=== PATIENT | female | born 1940 | race Caucasian/White ===

== ENCOUNTER → 2019-04-02 09:10 | Outpatient (BNVA) | payer MEDICARE, OTHER, SELFPAY | PROVIDERS: Visit Provider Nurse Practitioner Psychiatric/Mental Health | DX: F41.1 Generalized anxiety disorder (principal) | CPT/HCPCS: 99213 ==

== ENCOUNTER → 2019-07-02 07:59 | Outpatient (BNVA) | payer MEDICARE, SELFPAY | PROVIDERS: Family Provider Nurse Practitioner Family; Visit Provider Nurse Practitioner Psychiatric/Mental Health | DX: F41.1 Generalized anxiety disorder (principal) | CPT/HCPCS: 99212 ==

== ENCOUNTER → 2019-09-22 09:35 | Outpatient (BNVA) | payer MEDICARE, SELFPAY | PROVIDERS: Family Provider Nurse Practitioner Family; Visit Provider Nurse Practitioner Family | DX: I10 Essential (primary) hypertension (principal); E55.9 Vitamin D deficiency, unspecified; Z79.899 Other long term (current) drug therapy; Z13.6 Encounter for screening for cardiovascular disorders; H60.90 Unspecified otitis externa, unspecified ear; J30.89 Other allergic rhinitis; K21.9 Gastro-esophageal reflux disease without esophagitis; L23.9 Allergic contact dermatitis, unspecified cause | CPT/HCPCS: 80053; 80061; 81001; 82306; 83036; 84443; 85025 ==

== ENCOUNTER → 2020-03-01 08:22 | Outpatient (BNVA) | payer MEDICARE, SELFPAY | PROVIDERS: Family Provider Nurse Practitioner Family; Visit Provider Nurse Practitioner Family | DX: B96.81 Helicobacter pylori [H. pylori] as the cause of diseases classified elsewhere (principal); K29.70 Gastritis, unspecified, without bleeding | CPT/HCPCS: 86677 ==

== ENCOUNTER → 2020-06-23 09:59 | Outpatient (BNVA) | payer MEDICARE, SELFPAY | PROVIDERS: Family Provider Nurse Practitioner Family; PCP Nurse Practitioner Family; Visit Provider Nurse Practitioner Family | DX: R10.9 Unspecified abdominal pain (principal); R11.10 Vomiting, unspecified; R53.83 Other fatigue; R25.2 Cramp and spasm; R11.2 Nausea with vomiting, unspecified | CPT/HCPCS: 80053; 81000; 85025; 87400 ==

== ENCOUNTER 2020-06-23 20:36 | Inpatient (IN) | payer MEDICARE, SELFPAY ==
[2020-06-23 21:26] VITALS: BP 152/67; PULSE 62; RESP 18; TEMP 37.1; O2SAT 97; BMI 26.2
[2020-06-23 21:30] LABS: Add Urine Microscopic? YES; Bilirubin Urine Neg (Negative); Blood Urine 2+ (Negative); Glucose Urine UA Norm (Normal); Ketones Urine 3+ (Negative); Leukocyte Esterase Urine Negative (Negative); Nitrate Urine Negative (Negative); Protein Urine Trace (Negative); Specific Gravity, Urine 1.025 (1.005-1.030); Urine Appearance Cloudy (CLEAR); Urine Color Yellow (Yellow); Urobilinogen Urine 1 mg/dL (Negative); pH Urine 5 (5-7)
[2020-06-23 21:34] LABS: Add Urine Culture? Yes; Bacteria Urine TRACE /hpf; Mucus Urine 4+ /hpf; RBC Urine 0-4 /hpf (0-2); Squamous Epithelial Cell Urine 0-4 /hpf (0-5); WBC Urine 25-40 /hpf (0-5)
[2020-06-23 21:59] VITALS: BP 174/86; PULSE 64; RESP 18; O2SAT 97
[2020-06-23 22:02] LABS: Basophils % 0.3 %; Eosinophils % 0.3 %; Hematocrit 38.5 % (37.0-47.0); Hemoglobin 13.6 g/dL (11.5-15.3); Lymphocytes # 0.6 10^3/uL (0.8-4.8); Lymphocytes % 9.5 %; Mean Corpuscular HGB Conc 35.3 g/dL (30.0-36.0); Mean Corpuscular Hemoglobin 29.8 pg (28.0-34.0); Mean Corpuscular Volume 84.4 fL (81-99); Mean Platelet Volume 9.8 fL (7.4-10.4); Monocytes # 0.6 10^3/uL (0.2-0.9); Monocytes % 9.5 %; Neutrophils # 4.82 10^3/uL (1.8-7.7); Neutrophils % 79.9 %; Nucleated Red Blood Cells % 0 %; Platelet Count 194 10^3/cmm (130-400); Red Blood Count 4.56 10^6/uL (4.1-5.3); Red Cell Distribution Width 12.4 % (12.1-15.1)
--- NOTE | 2020-06-23 22:08 | W.ED.GENADLT ---
HPI - General Adult General: Chief complaint: General Medical Stated complaint: POSSIBLE LOW SODIUM Time Seen by Provider: 06/23/20 21:43 History of Present Illness: HPI narrative: 80-year-old female sent by her PCP via POV for low sodium level. She started having nausea and vomiting and generalized weakness yesterday. Sodium was 116 on lab draw this morning. No abdominal pain. No diarrhea. No sick contacts. No cough or congestion. No swelling. No dysuria. She has had decreased urination. No recent medication changes. Mild headache and dizziness. Associated symptoms: Reports headache(s), malaise, nausea and vomiting; Deny chest pain, dyspnea, rash or palpitations Review of Systems General: Reports: 10 or more systems reviewed and unremarkable except in HPI and below Const: Reports: body aches, change in appetite, fatigue and malaise Eyes: Denies: change in vision, blurry vision or eye discomfort ENMT: Denies: odynophagia, hoarseness or oral sores Card: Reports: lightheadedness and pre-syncope; Denies: chest pain, palpitations, irregular heart rhythm or edema Resp: Denies: dyspnea, productive cough, non-productive cough or wheezing GI: Reports: nausea and vomiting; Denies: diarrhea : Reports: oliguria; Denies: difficulty voiding, dysuria or urinary frequency Musc: Reports: muscle cramps and muscle weakness; Denies: joint redness, joint warmth or joint stiffness Skin/Breast: Denies: rash, pruritus or erythema Neuro: Reports: headache(s), weakness in extremities and dizziness Endo: Denies: polyuria, polydipsia, tired all the time or cold intolerance Adeel/Lymph: Denies: easy bruising or easy bleeding PFSH ED PFSH: Medical History Contact dermatitis, allergic Environmental and seasonal allergies Essential hypertension Generalized anxiety disorder See comments below. GERD without esophagitis Hypertension screen Medication management Otitis externa Vitamin D deficiency Surgical History Status post appendectomy Status post cataract extraction Status post hysterectomy Status post knee surgery Family History Father Heart disease Mother Cancer Social History Smoking and tobacco status: never smoked Alcohol intake: never Female Reproductive History: Para: 2 Physical Exam Const: COMMON NORMALS: no acute distress EXAM LIMITATIONS: no altered mental status GENERAL APPEARANCE: cooperative, well kempt and frail appearing; not in distress, not lethargic and not ill appearing NUTRITIONAL APPEARANCE: thin ORIENTATION/CONSCIOUSNESS: not lethargic HENMT: COMMON NORMALS: normocephalic HEAD & SCALP: normal to inspection and normocephalic Eye: COMMON NORMALS: Equal, round and reactive pupils present, EOMs intact bilaterally and conjunctivae normal CONJUNCTIVA: Yes conjunctivae normal PUPIL: Yes Equal, round and reactive pupils present Lymph: LYMPHATIC: no lymphadenopathy noted Resp: COMMON NORMALS: normal respiratory effort, No retractions and No use of accessory muscles Cardio: COMMON NORMALS: regular rate and regular rhythm RATE: regular rate RHYTHM: regular rhythm GI: COMMON NORMALS: Soft to palpation; negative for No hepatosplenomegaly present AUSCULTATION: Yes normoactive bowel sounds PALPATION: Yes Soft to palpation, No Tenderness to palpation present (GI), No Guarding due to palpation present (GI), No Rigid due to palpation, No No hepatosplenomegaly present, No Hepatosplenomegaly present, No Palpable mass present and No Pulsatile mass present Extremity: COMMON NORMALS: normal to inspection, full ROM and no pedal edema Neuro: SENSORIUM/ORIENTATION: No lethargic Psych: APPEARANCE: Yes well kempt Skin: COMMON NORMALS: no rashes or lesions noted and no wounds GENERAL SKIN EXAM: no rashes or lesions noted Course Vital Signs: Vital signs: Vital Signs Temperature 98.7 F 06/24/20 04:00 Pulse Rate 75 06/24/20 04:00 Respiratory Rate 18 06/24/20 04:00 Blood Pressure 133/75 06/24/20 04:00 Pulse Oximetry 94 06/24/20 04:00 MDM - General Adult MDM Narrative: Medical decision making narrative: 80-year-old female with hyponatremia, sodium of 115. Hypoosmolar, hypovolemic Given a initial hypertonic saline bolus of 150 ml over 30 minutes. Reviewed medication list; no obvious contributors. Chest x-ray does not show any mass. Urine is appropriately concentrated, no acute UTI. Urine sodium pending. Discussed the case with Dr. Horton, patient will be admitted to [facility] for further eval and treatment. Lab Data: Labs: Lab Results 06/23/20 06/23/20 06/23/20 Range/Units 05:15 21:22 21:50 WBC 6.0 (4.0-10.0) 10^3/ uL RBC 4.56 (4.1-5.3) 10^6/u L Hgb 13.6 (11.5-15.3) g/dL Hct 38.5 (37.0-47.0) % MCV 84.4 (81-99) fL MCH 29.8 (28.0-34.0) pg MCHC 35.3 (30.0-36.0) g/dL RDW 12.4 (12.1-15.1) % Plt Count 194 (130-400) 10^3/c mm MPV 9.8 (7.4-10.4) fL Neut % (Auto) 79.9 % Lymph % (Auto) 9.5 % [place] % (Auto) 9.5 % Eos % (Auto) 0.3 % Baso % (Auto) 0.3 % Neut # (Auto) 4.82 (1.8-7.7) 10^3/u L Lymph # (Auto) 0.6 L (0.8-4.8) 10^3/u L [place] # (Auto) 0.6 (0.2-0.9) 10^3/u L Eos # (Auto) 0.0 (0.0-0.8) 10^3/u L Baso # (Auto) 0.0 (0.0-0.1) 10^3/u L Nucleated RBC % (a uto) 0 % Nucleated RBCs # 0.0 /100WBC Sodium (136-145) mmol/L Potassium (3.5-5.1) mmol/L Chloride (98-107) mmol/L Carbon Dioxide (22-29) mmol/L Anion Gap (5-19) BUN (8-23) mg/dL Creatinine (0.5-0.9) mg/dL GFR Calculation Glucose (65-115) mg/dL Calculated Osmolal ity (285-295) mOsm/k g Lactate (0.5-2.2) mmol/L Uric Acid (2.4-5.7) mg/dL Calcium (8.5-10.5) mg/dL Total Bilirubin (0.15-1.2) mg/dL AST (0-32) U/L ALT (0-33) U/L Alkaline Phosphata se (35-105) IU/L Total Protein (6.6-8.7) g/dL Albumin (3.5-5.2) g/dL Globulin (1.3-4.6) g/dL TSH (0.27-4.20) uIU/ mL Urine Color Yellow (Yellow) Urine Appearance Cloudy (CLEAR) Urine pH 5 (5-7) Ur Specific Gravit y 1.025 (1.005-1.030) Urine Protein Trace (Negative) Urine Glucose (UA) Norm (Normal) Urine Ketones 3+ H (Negative) Urine Blood 2+ H (Negative) Urine Nitrate Negative (Negative) Urine Bilirubin Neg (Negative) Urine Urobilinogen 1 H (Negative) mg/dL Ur Leukocyte Gerladine ase Negative (Negative) Urine RBC 0-4 H (0-2) /hpf Urine WBC 25-40 H (0-5) /hpf Ur Squamous Epith Cells 0-4 H (0-5) /hpf Amorphous Sediment Not Reportable Urine Bacteria Trace (NONE) /hpf Urine Mucus 4+ /hpf Ur Random Sodium 63 mmol/L 06/23/20 06/23/20 06/23/20 Range/Units 21:50 21:50 21:50 WBC (4.0-10.0) 10^3/ uL RBC (4.1-5.3) 10^6/u L Hgb (11.5-15.3) g/dL Hct (37.0-47.0) % MCV (81-99) fL MCH (28.0-34.0) pg MCHC (30.0-36.0) g/dL RDW (12.1-15.1) % Plt Count (130-400) 10^3/c mm MPV (7.4-10.4) fL Neut % (Auto) % Lymph % (Auto) % [place] % (Auto) % Eos % (Auto) % Baso % (Auto) % Neut # (Auto) (1.8-7.7) 10^3/u L Lymph # (Auto) (0.8-4.8) 10^3/u L [place] # (Auto) (0.2-0.9) 10^3/u L Eos # (Auto) (0.0-0.8) 10^3/u L Baso # (Auto) (0.0-0.1) 10^3/u L Nucleated RBC % (a uto) % Nucleated RBCs # /100WBC Sodium 115 L* (136-145) mmol/L Potassium 3.8 (3.5-5.1) mmol/L Chloride 78 L (98-107) mmol/L Carbon Dioxide 23 (22-29) mmol/L Anion Gap 17.8 (5-19) BUN 11 (8-23) mg/dL Creatinine 0.5 (0.5-0.9) mg/dL GFR Calculation Not Reportable Glucose 103 (65-115) mg/dL Calculated Osmolal ity 240 L (285-295) mOsm/k g Lactate 1.3 (0.5-2.2) mmol/L Uric Acid (2.4-5.7) mg/dL Calcium 8.6 (8.5-10.5) mg/dL Total Bilirubin 0.9 (0.15-1.2) mg/dL AST 29 (0-32) U/L ALT 21 (0-33) U/L Alkaline Phosphata se 72 (35-105) IU/L Total Protein 6.8 (6.6-8.7) g/dL Albumin 4.3 (3.5-5.2) g/dL Globulin 2.5 (1.3-4.6) g/dL TSH 1.24 (0.27-4.20) uIU/ mL Urine Color (Yellow) Urine Appearance (CLEAR) Urine pH (5-7) Ur Specific Gravit y (1.005-1.030) Urine Protein (Negative) Urine Glucose (UA) (Normal) Urine Ketones (Negative) Urine Blood (Negative) Urine Nitrate (Negative) Urine Bilirubin (Negative) Urine Urobilinogen (Negative) mg/dL Ur Leukocyte Geraldine ase (Negative) Urine RBC (0-2) /hpf Urine WBC (0-5) /hpf Ur Squamous Epith Cells (0-5) /hpf Amorphous Sediment Urine Bacteria (NONE) /hpf Urine Mucus /hpf Ur Random Sodium mmol/L 06/23/20 Range/Units 21:50 WBC (4.0-10.0) 10^3/ uL RBC (4.1-5.3) 10^6/u L Hgb (11.5-15.3) g/dL Hct (37.0-47.0) % MCV (81-99) fL MCH (28.0-34.0) pg MCHC (30.0-36.0) g/dL RDW (12.1-15.1) % Plt Count (130-400) 10^3/c mm MPV (7.4-10.4) fL Neut % (Auto) % Lymph % (Auto) % [place] % (Auto) % Eos % (Auto) % Baso % (Auto) % Neut # (Auto) (1.8-7.7) 10^3/u L Lymph # (Auto) (0.8-4.8) 10^3/u L [place] # (Auto) (0.2-0.9) 10^3/u L Eos # (Auto) (0.0-0.8) 10^3/u L Baso # (Auto) (0.0-0.1) 10^3/u L Nucleated RBC % (a uto) % Nucleated RBCs # /100WBC Sodium (136-145) mmol/L Potassium (3.5-5.1) mmol/L Chloride (98-107) mmol/L Carbon Dioxide (22-29) mmol/L Anion Gap (5-19) BUN (8-23) mg/dL Creatinine (0.5-0.9) mg/dL GFR Calculation Glucose (65-115) mg/dL Calculated Osmolal ity (285-295) mOsm/k g Lactate (0.5-2.2) mmol/L Uric Acid 2.7 (2.4-5.7) mg/dL Calcium (8.5-10.5) mg/dL Total Bilirubin (0.15-1.2) mg/dL AST (0-32) U/L ALT (0-33) U/L Alkaline Phosphata se (35-105) IU/L Total Protein (6.6-8.7) g/dL Albumin (3.5-5.2) g/dL Globulin (1.3-4.6) g/dL TSH (0.27-4.20) uIU/ mL Urine Color (Yellow) Urine Appearance (CLEAR) Urine pH (5-7) Ur Specific Gravit y (1.005-1.030) Urine Protein (Negative) Urine Glucose (UA) (Normal) Urine Ketones (Negative) Urine Blood (Negative) Urine Nitrate (Negative) Urine Bilirubin (Negative) Urine Urobilinogen (Negative) mg/dL Ur Leukocyte Geraldine ase (Negative) Urine RBC (0-2) /hpf Urine WBC (0-5) /hpf Ur Squamous Epith Cells (0-5) /hpf Amorphous Sediment Urine Bacteria (NONE) /hpf Urine Mucus /hpf Ur Random Sodium mmol/L Discharge Plan Discharge Patient Disposition: Admitted As Inpatient Admit Provider: Ritu Barillas Clinical Impression: Acute hyponatremia Condition: Stable Coding Level of Care Code ED House Detective for Chg Fwd Exam Comprehensive
[2020-06-23 22:17] LABS: Alanine Aminotransferase 21 U/L (0-33); Albumin Level 4.3 g/dL (3.5-5.2); Alkaline Phosphatase 72 IU/L (35-105); Aspartate Amino Transferase 29 U/L (0-32); Blood Urea Nitrogen 11 mg/dL (8-23); Calcium 8.6 mg/dL (8.5-10.5); Carbon Dioxide 23 mmol/L (22-29); Chloride 78 mmol/L (98-107); Globulin 2.5 g/dL (1.3-4.6); Glucose 103 mg/dL (65-115); Osmolality Calculated 240 mOsm/kg (285-295); Total Bilirubin 0.9 mg/dL (0.15-1.2); Total Protein 6.8 g/dL (6.6-8.7)
[2020-06-23 22:18] LABS: Lactate (Lactic Acid level) 1.3 mmol/L (0.5-2.2)
[2020-06-23 22:20] LABS: Anion Gap 17.8 (5-19); Potassium 3.8 mmol/L (3.5-5.1); Sodium 115 mmol/L (136-145)
--- NOTE | 2020-06-23 22:51 | XRR_ITS ---
PROCEDURE INFORMATION: Exam: XR Chest Exam date and time: 06/23/2020 10:56 PM Age: 80 years old Clinical indication: Other: Hyponatremia; Patient HX: General weakness and hypnatremia TECHNIQUE: Imaging protocol: XR of the chest. Views: 1 view. Total images: 1 COMPARISON: CT chest w con* [id number] 09/17/2018 11:38 AM FINDINGS: Lungs: No visible active interstitial or alveolar airspace disease. Calcified granulomas of antecedent disease. Pleural spaces: Unremarkable. No pleural effusion. No pneumothorax. Heart/Mediastinum: Cardiac structures and configuration with arteriosclerosis. Bones/joints: Unremarkable. XR/XR chest 1V portable [id number] IMPRESSION: Nonacute.
[2020-06-23 23:07] VITALS: BP 164/84; PULSE 83; RESP 16; O2SAT 96
[2020-06-23 23:16] LABS: Thyroid Stimulating Hormone 1.24 uIU/mL (0.27-4.20)
--- NOTE | 2020-06-23 23:21 | PM.HP ---
Providers/Chief Complaint Primary Care Provider: BEBO Arias Chief Complaint: POSSIBLE LOW SODIUM History of Present Illness Destiny Duong is a 80 year old female who presented today with chief complaint of recurrent nausea and vomiting. Patient is stating that her symptoms started on Saturday, she has not noticed any fever or diarrhea, but her symptoms started after having lunch at [employer]. In total she has had more than 30 episodes of emesis at home, she is not experiencing any abdominal pain, dysuria or diarrhea. She has not noticed any fever or stool in blood. She is complaining of headache and weakness, every time she tries to have any kind of fluid especially Gatorade she would experience vomiting. Diagnostics in the ER revealed normal CBC, BMP revealed hyponatremia hypokalemia urine looks concentrated with higher specific gravity ketones positive, clinically looks mildly dehydrated received 150 bolus of 3% hypertonic saline in the ER Review of Systems Const: Denies: fever(s) Eyes: Denies: change in vision ENMT: Denies: throat pain Card: Denies: chest pain Resp: Denies: dyspnea GI: Reports: nausea and vomiting; Denies: abdominal pain, diarrhea or constipation : Denies: flank pain Musc: Denies: neck pain Skin/Breast: Denies: rash Neuro: Denies: headache(s) Psych: Denies: anxiety Endo: Denies: polyuria Adeel/Lymph: Denies: easy bruising All/Imm: Denies: urticaria Medications/Allergies Home Medications Medication Instructions Recorded Confirmed Last Taken Type fluticasone propionate 50 1 spray INTRANASAL DAILY PRN 90 09/22/19 06/23/20 Unknown Rx mcg/actuation nasal Days #16 gm spray,suspension triamcinolone acetonide 0.1 % 1 applic TOPICAL DAILY PRN 30 Days 09/22/19 06/23/20 Unknown Rx topical cream #15 gm albuterol sulfate 90 mcg/actuation 2 puff INHALATION Q4H PRN 30 Days 02/16/20 06/23/20 Unknown Rx aerosol inhaler #8.5 gm atenolol 50 mg tablet 50 mg PO BID 90 Days #180 tab 04/07/20 06/23/20 Unknown Rx pantoprazole 40 mg tablet,delayed 40 mg PO Q12H 90 Days #180 tab 04/07/20 06/23/20 Unknown Rx release paroxetine HCl 20 mg tablet 20 mg PO DAILY 90 Days #90 tab 04/07/20 06/23/20 Unknown Rx Allergies Allergy/AdvReac Type Severity Reaction Status Date / Time cefaclor [From Ceclor] Allergy hives Verified 06/23/20 09:13 ciprofloxacin [From Cipro] Allergy hives Verified 06/23/20 09:13 Sulfa (Sulfonamide Allergy hives Verified 06/23/20 09:13 Antibiotics) PFSH Acute PFSH: Medical History Contact dermatitis, allergic Environmental and seasonal allergies Essential hypertension Generalized anxiety disorder See comments below. GERD without esophagitis Hypertension screen Medication management Otitis externa Vitamin D deficiency Surgical History Status post appendectomy Status post cataract extraction Status post hysterectomy Status post knee surgery Family History Father Heart disease Mother Cancer Social History Smoking and tobacco status: never smoked Alcohol intake: never Female Reproductive History: Para: 2 Vitals/I&O/Wt Last Vital Signs Temp 98.8 F 06/23/20 21:26 Pulse 83 06/23/20 23:07 Resp 16 06/23/20 23:07 BP 164/84 06/23/20 23:07 Pulse Ox 96 06/23/20 23:07 Weight last 48 hrs Weight 64.864 kg Physical Exam Narrative: EXAM NARRATIVE: elderly female without any active distress of chest pain shortness of breath or abdominal pain Looks mildly dehydrated Hemodynamically stable S1, S2 no murmur appreciated Abdomen soft nontender bowel sounds present Lower extremity no edema gangrene ulcer Bilateral breath sounds no audible stridor or wheezing Appropriate mood and affect GCS 15 no neurological deficits Complaining of headache, pressure-like sensation, frontal area nontender on palpation Data : 06/23/20 21:50 06/23/20 21:50 A&P Assessment and plan (1) Acute hyponatremia: Clinically mildly dehydrated, recurrent nausea and vomiting, no fever, blood in stool or abdominal pain Suspect gastritis Received 150 mL bolus of 3% hypertonic saline in the ER We will check sodium every 4 hours, next sodium check at 4 AM Complaining of headache and weakness I will keep her on 30 cc/h of normal saline TSH normal, urine looks concentrated We will request urine and serum osmolarity Target sodium correction 6 to 8 mEq in 24 hours Status: Acute Additional A&P Information Regular diet Full code Anxiety/depression: Hold paroxetine GERD: Continue Protonix once daily DVT prophylaxis Lovenox Attestations Medical Necessity Statement*: Anticipating stay in the hospital cross more than 2 midnights for management of hyponatremia with symptoms Time Spent in Patient Care: (>than 50% of time spent in counselling and/or direct pt care on unit). 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
[2020-06-23] MEDS: ondansetron 2 mg/ML SDV 2 mL 4 MG IVP (23:41)
[2020-06-24] VITALS (65 sets, daily range): BP systolic 110–164; BP diastolic 59–106; PULSE 56–81; RESP 15–25; TEMP 36.4–37.1; O2SAT 93–99
[2020-06-24 00:10] LABS: Uric Acid 2.7 mg/dL (2.4-5.7)
[2020-06-24] MEDS: sodium chloride 0.9% 1,000 ML 30 ML IV (01:02)
[2020-06-24 01:52] LABS: Sodium 117 mmol/L (136-145)
[2020-06-24 05:42] LABS: Anion Gap 10.7 (5-19); Blood Urea Nitrogen 9 mg/dL (8-23); Calcium 8.1 mg/dL (8.5-10.5); Carbon Dioxide 27 mmol/L (22-29); Chloride 85 mmol/L (98-107); Glucose 86 mg/dL (65-115); Osmolality Calculated 246 mOsm/kg (285-295); Potassium 3.7 mmol/L (3.5-5.1)
[2020-06-24 05:46] LABS: Urine Random Sodium 63 mmol/L
[2020-06-24 05:52] LABS: Sodium 119 mmol/L (136-145)
[2020-06-24] MEDS: atenolol 50 mg Tablet PO ×2 (08:53→18:05)
[2020-06-24] MEDS: pantoprazole DR 40 mg Tablet PO (08:53)
[2020-06-24 09:00] LABS: Sodium 117 mmol/L (136-145)
[2020-06-24 12:34] LABS: Sodium 116 mmol/L (136-145)
--- NOTE | 2020-06-24 15:15 | P.PN_ITS ---
Subjective Subjective: Interval history: Patient was seen and examined this morning, nausea and vomiting has improved, still complaining of diarrhea 2 episodes, denies any, dizziness, headache, muscle cramps, weakness , confusion, abdominal pain, currently alert oriented x3. Tolerating diet well. Medications: Reviewed: Yes Vitals/I&O/Wt Last Vital Signs Temp 97.6 F 06/24/20 11:20 Pulse 66 06/24/20 11:20 Resp 18 06/24/20 11:20 BP 133/64 06/24/20 11:20 Pulse Ox 96 06/24/20 11:20 06/24/20 06/24/20 06/24/20 06:59 14:59 22:59 Intake Total 290 / 290 960 / 960 Balance 290 / 290 960 / 960 Weight last 48 hrs Weight 64.864 kg Physical Exam Const: COMMON NORMALS: patient oriented x3 HENMT: COMMON NORMALS: normocephalic and atraumatic HEAD & SCALP: normocephalic and atraumatic Chest: CHEST: Yes Symmetrical chest wall rise Resp: COMMON NORMALS: normal respiratory effort, No retractions, No use of a ccessory muscles and clear to auscultation bilaterally EFFORT & INSPECTION: Yes symmetric chest movement AUSCULTATION: clear to auscultation bilaterally Cardio: COMMON NORMALS: regular rate, regular rhythm, S1 normal heart sound present, S2 normal heart sound present, No gallops present (Cardio), No murmurs present (Cardio), No rub (Cardio) and Peripheral pulses 2+ throughout RATE: regular rate RHYTHM: regular rhythm HEART SOUNDS: S1 normal heart sound present and S2 normal heart sound present PERIPHERAL PULSES: Peripheral pulses 2+ throughout GI: COMMON NORMALS: Normal to inspection, nondistended, normoactive bowel sounds present, Soft to palpation, non-tender, No hepatosplenomegaly present and no masses AUSCULTATION: Yes normoactive bowel sounds PALPATION: Yes Soft to palpation and Yes No hepatosplenomegaly present RECTAL EXAM: deferred Extremity: COMMON NORMALS: no clubbing, cyanosis or edema and no pedal edema Neuro: COMMON NORMALS: patient oriented x3 Data : 06/23/20 21:50 06/24/20 18:25 A&P Assessment and plan (1) Acute hyponatremia: Acute euvolemic hyponatremia: Likely secondary to SIADH, 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 Rule out other causes. Urine specific gravity is high, serum osmolality is low, TSH is normal. Random cortisol: Urine osmolality: Awaited Patient has received hypertonic saline in the ER, was initially kept on 30 cc normal saline an hour. IV fluids have been discontinued. Lasix 20 IV one-time dose. Serum sodium every 4 hours. Status: Acute Additional A&P Information Acute hyponatremia; Clinically mildly dehydrated, recurrent nausea and vomiting, no fever, blood in stool or abdominal pain Suspect gastritis Received 150 mL bolus of 3% hypertonic saline in the ER We will check sodium every 4 hours, next sodium check at 4 AM Complaining of headache and weakness I will keep her on 30 cc/h of normal saline TSH normal, urine looks concentrated We will request urine and serum osmolarity Target sodium correction 6 to 8 mEq in 24 hours Regular diet Full code Anxiety/depression: Hold paroxetine GERD: Continue Protonix once daily DVT prophylaxis Lovenox Attestations Medical Necessity Statement*: Patient needs to be in hospital for management of acute hyponatremia. 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
[2020-06-24] MEDS: sodium chloride 1 gm Tablet 2 GM PO (15:43)
[2020-06-24 17:32] LABS: Sodium 114 mmol/L (136-145)
[2020-06-24] MEDS: FUROsemide 10 mg/mL SDV 2mL 20 MG IVP (18:05)
[2020-06-24 19:10] LABS: Sodium 115 mmol/L (136-145)
[2020-06-24 20:36] LABS: Sodium 114 mmol/L (136-145)
[2020-06-25] VITALS (281 sets, daily range): BP systolic 112–180; BP diastolic 48–128; PULSE 51–79; RESP 9–29; TEMP 36.4–37.5; O2SAT 93–99
[2020-06-25 03:02] LABS: Sodium 120 mmol/L (136-145)
--- NOTE | 2020-06-25 06:37 | PC.NURSE ---
SHIFT SUMMARY Patient arrived on unit at 0725 form [facility] floor by wheelchair. Patient was able to transfer from wheelchair to bed with nurse assistance but did not use any other assist devices. No reports of confusion or pain from patient all evening. Patient had an uneventful night and was asleep most of the night.
[2020-06-25] MEDS: atenolol 50 mg Tablet PO ×2 (08:14→17:15)
[2020-06-25] MEDS: pantoprazole DR 40 mg Tablet PO (08:14)
[2020-06-25 10:09] LABS: Sodium 122 mmol/L (136-145)
--- NOTE | 2020-06-25 11:25 | P.CONIM_ITS ---
Providers/Reason For Consult Consulting Physican/Specialty*: Eval for hyponatremia Reason for Consult*: Eval for hypoNa Attending Physician: Ritu Barillas MD Primary Care Provider: BEBO Arias History of Present Illness History of Present Illness Thank you for consultation, today I had the pleasure of reviewing this 80 year old lady. Roughly last Saturday after eating at [employer], she felt unwell, developed nausea and vomiting and diarrhea. She was able to maintain some oral intake of water, roughly 60 ounces of water a day but she has not been eating or drinking very well. Symptoms persisted and eventually she arrived in our emergency room for evaluation. On arrival she was found on initial blood chemistry to have a serum sodium of 116. This is in [place] contrast to a sodium of 139 seen back in August of last year. Following hospitalization she did receive 3% IV hypertonic saline, initially the sodium level marginally improved to 119, however subsequently drifted down. After this IV fluid has been stopped and her sodium levels actually improving now by itself, on free water restriction and a more robust diet. Today at 9:00 this morning her sodium is now 122. Urinalysis demonstrated specific gravity 1.025 urine sodium 63 and urine osmolality sent and pending. TSH is normal at 1.24 No history of hyponatremia. Typically she has a robust diet, she does not over hydrate. No history of thyroid disease, lung disease, heart disease, kidney disease, nephrotic syndrome. No extremity edema, shortness of breath or other hypervolemic symptoms. No recent exposure to thiazide diuretics opioids, steroids, new antiseizure medications. She has been on paroxetine now for roughly 1 year. Hemodynamically she has been robust since hospitalization. Review of Systems Narrative: ROS - 12 point review of systems completed per HPI and subjective assessment, this includes Constitutional: No weakness, fatigue Respiratory: No SOB on exertion, comfortable at rest CardioVasc: No chest pain, palpitations Gastrointestinal: Nausea, no vomiting Neurological: No seizures, no AMS Derm: No new rashes, lesions or wounds Immunological: No seasonal and no food allergies Meds/Allergies Home Medications and Allergies Home Medications Medication Instructions Recorded Confirmed Last Taken Type fluticasone propionate 50 1 spray INTRANASAL DAILY PRN 90 09/22/19 06/24/20 Unknown Rx mcg/actuation nasal Days #16 gm spray,suspension triamcinolone acetonide 0.1 % 1 applic TOPICAL DAILY PRN 30 Days 09/22/19 06/24/20 Unknown Rx topical cream #15 gm albuterol sulfate 90 mcg/actuation 2 puff INHALATION Q4H PRN 30 Days 02/16/20 06/24/20 Unknown Rx aerosol inhaler #8.5 gm atenolol 50 mg tablet 50 mg PO BID 90 Days #180 tab 04/07/20 06/24/20 Unknown Rx pantoprazole 40 mg tablet,delayed 40 mg PO Q12H 90 Days #180 tab 04/07/20 06/24/20 Unknown Rx release paroxetine HCl 20 mg tablet 20 mg PO DAILY 90 Days #90 tab 04/07/20 06/24/20 Unknown Rx Allergies Allergy/AdvReac Type Severity Reaction Status Date / Time cefaclor [From Ceclor] Allergy hives Verified 06/23/20 09:13 ciprofloxacin [From Cipro] Allergy hives Verified 06/23/20 09:13 Sulfa (Sulfonamide Allergy hives Verified 06/23/20 09:13 Antibiotics) Current Medications Current Medications Generic Name Dose Route Start Last Admin Trade Name Freq PRN Reason Stop Dose Admin Atenolol 50 mg 06/24/20 09:00 06/25/20 08:14 Atenolol 50 Mg Tablet PO 50 mg BID ODILON Administration Pantoprazole Sodium 40 mg 06/24/20 09:00 06/25/20 08:[address] 40 Mg Tablet PO 40 mg DAILY ODILON Administration PFSH Acute PFSH: Medical History Contact dermatitis, allergic Environmental and seasonal allergies Essential hypertension Generalized anxiety disorder See comments below. GERD without esophagitis Hypertension screen Medication management Otitis externa Vitamin D deficiency Surgical History Status post appendectomy Status post cataract extraction Status post hysterectomy Status post knee surgery Family History Father Heart disease Mother Cancer Social History Smoking and tobacco status: never smoked Alcohol intake: never Female Reproductive History: Para: 2 Vitals/I&O/Wt Last Vital Signs Temp 98.4 F 06/25/20 07:45 Pulse 61 06/25/20 09:10 Resp 14 06/25/20 09:10 BP 134/58 06/25/20 09:10 Pulse Ox 97 06/25/20 09:10 06/24/20 06/25/20 06/25/20 22:59 06:59 14:59 Intake Total 492 / 1452 150 / 150 Output Total 300 / 300 350 / 650 150 / 150 Balance 192 / 1152 -350 / 802 0 / 0 Weight last 48 hrs Weight 64.864 kg Physical Exam Narrative: EXAM NARRATIVE: Constitutional: Awake, comfortable HEENT: Wet mucosa, no jvp, non icteric Lungs: Bilaterally clear without discernible wheeze or rales in all lung zones CVS: S1 S2, no murmurs Abdo: Soft, BS ok Ext 4: Minimal edema, peripheral perfusion with no cyanosis Neurological: Grossly non-focal A&P Additional A&P Information 1. Euvolemic hyponatremia Consistent with initial presentation of diarrhea i.e. loss to electrolyte rich fluid which in itself will stimulate ADH to further concentrate urine, in addition to low solute and high water intake for the last few days. Her diarrhea, vomiting is subsiding and her nausea remains but is very slight. Her serum chemistry is now corrected by itself on free water restriction and a robust diet. No other changes to medical management at this time, will continue to monitor her sodium levels very closely. Although she did down to 114 last night, she was roughly this level yesterday as well. As high as 117 yesterday morning i.e. her goal for this morning is thus 125 and for tomorrow morning will be low 130s. Given the acuity of the hyponatremia in this case her risk for demyelination is very low. 2. Hemodynamics Blood pressure is robust, no changes to antihypertensive therapy. 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
--- NOTE | 2020-06-25 12:41 | P.PN_ITS ---
Subjective Subjective: Interval history: Patient was seen and examined this morning, deny nausea , vomiting, dizziness, headache, muscle cramps, weakness , confusion, abdominal pain, currently alert oriented x3.Tolerating diet well. Serum sodium has improved. Medications: Reviewed: Yes Vitals/I&O/Wt Last Vital Signs Temp 98.4 F 06/25/20 07:45 Pulse 61 06/25/20 09:10 Resp 14 06/25/20 09:10 BP 134/58 06/25/20 09:10 Pulse Ox 97 06/25/20 09:10 06/24/20 06/25/20 06/25/20 22:59 06:59 14:59 Intake Total 492 / 1452 150 / 150 Output Total 300 / 300 350 / 650 150 / 150 Balance 192 / 1152 -350 / 802 0 / 0 Weight last 48 hrs Weight 64.864 kg Physical Exam Const: COMMON NORMALS: patient oriented x3 HENMT: COMMON NORMALS: normocephalic and atraumatic HEAD & SCALP: normocephalic and atraumatic Chest: CHEST: Yes Symmetrical chest wall rise Resp: COMMON NORMALS: normal respiratory effort, No retractions, No use of accessory muscles and clear to auscultation bilaterally EFFORT & INSPECTION: Yes symmetric chest movement AUSCULTATION: clear to auscultation bilaterally Cardio: COMMON NORMALS: regular rate, regular rhythm, S1 normal heart sound present, S2 normal heart sound present, No gallops present (Cardio), No murmurs present (Cardio), No rub (Cardio) and Peripheral pulses 2+ throughout RATE: regular rate RHYTHM: regular rhythm HEART SOUNDS: S1 normal heart sound present and S2 normal heart sound present PERIPHERAL PULSES: Peripheral pulses 2+ throughout GI: COMMON NORMALS: Normal to inspection, nondistended, normoactive bowel sounds present, Soft to palpation, non-tender, No hepatosplenomegaly present and no masses AUSCULTATION: Yes normoactive bowel sounds PALPATION: Yes Soft to palpation and Yes No hepatosplenomegaly present RECTAL EXAM: deferred Extremity: COMMON NORMALS: no clubbing, cyanosis or edema and no pedal edema Neuro: COMMON NORMALS: patient oriented x3 Data : 06/23/20 21:50 06/25/20 17:56 A&P Assessment and plan (1) Acute hyponatremia: Acute euvolemic hyponatremia: Likely secondary to SIADH, 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 Rule out other causes. Urine specific gravity is high, serum osmolality is low, TSH is normal. Random cortisol: Urine osmolality: Awaited Patient has received hypertonic saline in the ER, was initially kept on 30 cc normal saline an hour. IV fluids have been discontinued. Lasix 20 IV one-time dose. Serum sodium every 4 hours. Status: Acute Additional A&P Information Acute hyponatremia; Clinically mildly dehydrated, recurrent nausea and vomiting, no fever, blood in stool or abdominal pain Suspect gastritis Received 150 mL bolus of 3% hypertonic saline in the ER We will check sodium every 4 hours, next sodium check at 4 AM Complaining of headache and weakness I will keep her on 30 cc/h of normal saline TSH normal, urine looks concentrated We will request urine and serum osmolarity Target sodium correction 6 to 8 mEq in 24 hours Regular diet Full code Anxiety/depression: Hold paroxetine GERD: Continue Protonix once daily DVT prophylaxis Lovenox Attestations Medical Necessity Statement*: Patient needs to be in hospital for management of acute hyponatremia. Coding Level of Care Code Acute Security Police Officer for Luiz Real Diagnoses Acute hyponatremia E87.1
--- NOTE | 2020-06-25 18:47 | PC.NURSE ---
Shift Summary: Uneventful shift. Pt's sodium level continues to improve. Pt is alert and oriented. Is able to get up to the bedisde commode and has spent a lot of time in a chair today. Nurse attempted to ambulate pt, but pt reports that she is too weak to do so just yet. Pt's oral intake has been 700 mL during day shift with a 1500 mL fluid restriction. Most recent labs have shown a sodium level decrease form [address] kaur alerted and no new orders were received.
[2020-06-25 18:48] LABS: Sodium 119 mmol/L (136-145)
[2020-06-26] VITALS (161 sets, daily range): BP systolic 110–185; BP diastolic 51–113; PULSE 51–90; RESP 9–29; TEMP 36.6–37.2; O2SAT 93–99
[2020-06-26 06:38] LABS: Basophils % 0.7 %; Eosinophils # 0.1 10^3/uL (0.0-0.8); Eosinophils % 1.5 %; Hemoglobin 12.5 g/dL (11.5-15.3); Lymphocytes # 0.9 10^3/uL (0.8-4.8); Lymphocytes % 22.8 %; Mean Corpuscular HGB Conc 35.7 g/dL (30.0-36.0); Mean Corpuscular Hemoglobin 29.7 pg (28.0-34.0); Mean Corpuscular Volume 83.1 fL (81-99); Mean Platelet Volume 9.6 fL (7.4-10.4); Monocytes # 0.5 10^3/uL (0.2-0.9); Monocytes % 12.6 %; Neutrophils # 2.56 10^3/uL (1.8-7.7); Neutrophils % 62.2 %; Nucleated Red Blood Cells % 0 %; Platelet Count 190 10^3/cmm (130-400); Red Blood Count 4.21 10^6/uL (4.1-5.3); Red Cell Distribution Width 12.7 % (12.1-15.1); White Blood Count 4.1 10^3/uL (4.0-10.0)
[2020-06-26 06:56] LABS: Anion Gap 11.9 (5-19); Blood Urea Nitrogen 9 mg/dL (8-23); Calcium 7.9 mg/dL (8.5-10.5); Carbon Dioxide 28 mmol/L (22-29); Chloride 83 mmol/L (98-107); Glucose 99 mg/dL (65-115); Osmolality Calculated 247 mOsm/kg (285-295); Potassium 3.9 mmol/L (3.5-5.1)
[2020-06-26 07:36] LABS: Sodium 119 mmol/L (136-145)
[2020-06-26] MEDS: sodium chloride 1 gm Tablet 2 GM PO ×4 (07:52→20:26)
[2020-06-26] MEDS: ondansetron 2 mg/ML SDV 2 mL 4 MG IVP ×2 (08:11→16:58)
[2020-06-26] MEDS: pantoprazole DR 40 mg Tablet PO (08:11)
--- NOTE | 2020-06-26 08:20 | PC.NURSE ---
Rounded with Dr arvizu and Dr Horton this morning. Sodium levels have not increased from last night. Still at 119. New medication orders received for salt tabs (See mar). Patient appears alerted and oriented to person, place time, and situation, but if you have a lengthy conversation its noticeable that the patient does have some trouble recalling things and finding words.
--- NOTE | 2020-06-26 08:43 | CTR_ITS ---
PROCEDURE INFORMATION: Exam: CT Chest Without Contrast; Diagnostic Exam date and time: 06/26/2020 9:17 AM Age: 80 years old Clinical indication: Other: Hyponatremia TECHNIQUE: Imaging protocol: Diagnostic computed tomography of the chest without contrast. Radiation optimization: All CT scans at this facility use at least one of these dose optimization techniques: automated exposure control; mA and/or kV adjustment per patient size (includes targeted exams where dose is matched to clinical indication); or iterative reconstruction. COMPARISON: CT chest w con* [id number] 09/17/2018 11:38 AM RADIATION DOSE METRICS: Total DLP (mGy-cm): 407.58 FINDINGS: Lungs: Mild subsegmental basilar atelectasis. No pneumonia is seen. Pleural spaces: Unremarkable. No pneumothorax. No pleural effusion. Heart: Heart is not enlarged. The coronary arteries are calcified. Aorta: Calcified aorta. No aneurysm. Lymph nodes: Benign calcified mediastinal and pulmonary hilar lymph nodes. Adrenal glands: 1 cm left adrenal benign adenoma. Bones/joints: Degenerative changes in the spine with sclerosis and small osteophytes. Soft tissues: Unremarkable. CT/CT chest wo con [id number] IMPRESSION: 1. Coronary artery calcification. 2. Benign calcified granulomas disease. 3. Calcified atherosclerotic aorta. 4. No acute abnormalities are seen in the chest. COMMENTS: Consistent with the [employer]'s Incidental Findings Committee white paper (J Am Gideon Radiol 2017): Any incidental adrenal lesion less than or equal to 1 cm is likely benign. No follow-up imaging is recommended for these lesions per consensus recommendations based on imaging criteria. Further lab evaluation could be pursued if warranted based on clinical findings. Radiation Dose CTDIVOL = (mGy): DLP = 407.58 (mGy-cm)
--- NOTE | 2020-06-26 08:43 | PM.PN ---
Subjective Subjective: Interval history: No new issues today. She feels well. Breathing comfortably, no extremity edema, no confusion, no headache, no nausea or vomiting, no diarrhea. She is keen to go home. Medications: Reviewed: Yes Vitals/I&O/Wt Last Vital Signs Temp 98.6 F 06/26/20 04:25 Pulse 63 06/26/20 08:00 Resp 17 06/26/20 08:00 BP 162/76 06/26/20 08:00 Pulse Ox 95 06/26/20 08:00 06/25/20 06/26/20 06/26/20 22:59 06:59 14:59 Intake Total 550 / 700 Output Total 350 / 500 1000 / 1500 400 / 400 Balance 200 / 200 -1000 / -800 -400 / -400 Physical Exam Narrative: EXAM NARRATIVE: Constitutional: Awake, comfortable HEENT: Wet mucosa, no jvp, non icteric Lungs: Bilaterally clear without discernible wheeze or rales in all lung zones CVS: S1 S2, no murmurs Abdo: Soft, BS ok Ext 4: Minimal edema, peripheral perfusion with no cyanosis Neurological: Grossly non-focal Data : 06/26/20 06:31 06/26/20 06:31 Micro: Microbiology 06/23/20 21:22 Urine Culture - Preliminary Urine,Clean Catch Gram Negative Rods Gram Negative Rods#2 A&P Additional A&P Information 1. Euvolemic hyponatremia Sodium has drifted back down. Initially her presentation was consistent with hypovolemia from recent diarrhea, in addition to high fluid and low solute intake, however, she is behaving now like SIADH from an unclear etiology. Paroxetine has been held, will CT scan the lungs today to make sure were not missing anything there. Continue fluid restriction, encourage oral intake of food. We will add salt tablets, 2 g 3 times daily for the time being, titration over the next 24 hours depending on how sodium trends. Cont Q4 sodium levels 2. Hemodynamics Blood pressure is robust, no changes to antihypertensive therapy. 3. She will be able to go home once the sodium level is in the high 120 range. 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
--- NOTE | 2020-06-26 09:51 | PC.NURSE ---
Nurse Held 0900 beta wang. Heart rate has been in the mid 50's and blood pressure has been within normal limits.
[2020-06-26] MEDS: amlodipine 10 mg Tablet PO (11:03)
--- NOTE | 2020-06-26 11:18 | PC.NURSE ---
BP has steadily increased. Now in the 180's systolic. Heart rate is still less than 60. Nurse alerted Dr Horton and received a one time order for 10 mg amlodipine.
--- NOTE | 2020-06-26 12:36 | P.PN_ITS ---
Subjective Subjective: Interval history: Patient was seen and examined this morning, deny any active complaint.She wants to go home. No acute event overnight.Vitals and labs have been reviewed. Medications: Reviewed: Yes Vitals/I&O/Wt Last Vital Signs Temp 98.6 F 06/26/20 04:25 Pulse 58 L 06/26/20 10:45 Resp 14 06/26/20 10:45 BP 185/66 06/26/20 10:45 Pulse Ox 97 06/26/20 10:45 06/25/20 06/26/20 06/26/20 22:59 06:59 14:59 Intake Total 550 / 700 450 / 450 Output Total 350 / 500 1000 / 1500 400 / 400 Balance 200 / 200 -1000 / -800 50 / 50 Physical Exam Const: COMMON NORMALS: patient oriented x3 HENMT: COMMON NORMALS: normocephalic and atraumatic HEAD & SCALP: normocephalic and atraumatic Chest: CHEST: Yes Symmetrical chest wall rise Resp: COMMON NORMALS: normal respiratory effort, No retractions, No use of accessory muscles and clear to auscultation bilaterally EFFORT & INSPECTION: Yes symmetric chest movement AUSCULTATION: clear to auscultation bilaterally Cardio: COMMON NORMALS: regular rate, regular rhythm, S1 normal heart sound present, S2 normal heart sound present, No gallops present (Cardio), No murmurs present (Cardio), No rub (Cardio) and Peripheral pulses 2+ throughout RATE: regular rate RHYTHM: regular rhythm HEART SOUNDS: S1 normal heart sound present and S2 normal heart sound present PERIPHERAL PULSES: Peripheral pulses 2+ throughout GI: COMMON NORMALS: Normal to inspection, nondistended, normoactive bowel sounds present, Soft to palpation, non-tender, No hepatosplenomegaly present and no masses AUSCULTATION: Yes normoactive bowel sounds PALPATION: Yes Soft to palpation and Yes No hepatosplenomegaly present RECTAL EXAM: deferred Extremity: COMMON NORMALS: no clubbing, cyanosis or edema and no pedal edema Neuro: COMMON NORMALS: patient oriented x3 Data : 06/26/20 06:31 06/26/20 14:38 Micro: Microbiology 06/23/20 21:22 Urine Culture - Final Urine,Clean Catch Escherichia coli Morganella morganii A&P Assessment and plan (1) Acute hyponatremia: Acute euvolemic hyponatremia: Likely secondary to SIADH, 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 Rule out other causes. Urine specific gravity is high, serum osmolality is low, TSH is normal. Random cortisol: Urine osmolality: Awaited CT chest without contrast:No acute abnormalities are seen in the chest. X-ray chest:No visible active interstitial or alveolar airspace d isease.Calcified granulomas of antecedent disease. Pleural spaces: Unremarkable. No pleural effusion. No pneumothorax. Patient has received hypertonic saline in the ER, was initially kept on 30 cc no rmal saline an hour. IV fluids have been discontinued. Currently on 2 gm salt tablet p.o. 3 times daily Lasix 20 IV one-time dose. Serum sodium every 8 hours. Status: Acute Additional A&P Information Acute hyponatremia; Clinically mildly dehydrated, recurrent nausea and vomiting, no fever, blood in stool or abdominal pain Suspect gastritis Received 150 mL bolus of 3% hypertonic saline in the ER We will check sodium every 4 hours, next sodium check at 4 AM Complaining of headache and weakness I will keep her on 30 cc/h of normal saline TSH normal, urine looks concentrated We will request urine and serum osmolarity Target sodium correction 6 to 8 mEq in 24 hours Regular diet Full code Anxiety/depression: Hold paroxetine GERD: Continue Protonix once daily DVT prophylaxis Lovenox Attestations Medical Necessity Statement*: Patient needs to be in hospital for management of acute hyponatremia. 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
[2020-06-26 15:04] LABS: Sodium 121 mmol/L (136-145)
[2020-06-26] MEDS: atenolol 50 mg Tablet PO (17:00)
[2020-06-26 23:13] LABS: Sodium 124 mmol/L (136-145)
[2020-06-27] VITALS (58 sets, daily range): BP systolic 106–150; BP diastolic 45–70; PULSE 55–91; RESP 13–26; TEMP 36.3–36.9; O2SAT 94–98
[2020-06-27] MEDS: guaiFENesin-dextromethorphan UDC 10 mL 5 ML PO ×3 (00:42→16:22)
--- NOTE | 2020-06-27 00:45 | PC.NURSE ---
New orders; Pt c/o persistent cough that is unaffected by taking sips of water. RN contacted MD Eran addictions counselor assistant and received new orders for PRN cough suppressant.
[2020-06-27 03:52] LABS: Basophils # 0.1 10^3/uL (0.0-0.1); Eosinophils # 0.1 10^3/uL (0.0-0.8); Eosinophils % 2.1 %; Hematocrit 35.6 % (37.0-47.0); Hemoglobin 12.4 g/dL (11.5-15.3); Lymphocytes # 1.2 10^3/uL (0.8-4.8); Lymphocytes % 23.3 %; Mean Corpuscular HGB Conc 34.8 g/dL (30.0-36.0); Mean Corpuscular Hemoglobin 29.8 pg (28.0-34.0); Mean Corpuscular Volume 85.6 fL (81-99); Mean Platelet Volume 10.4 fL (7.4-10.4); Monocytes # 0.6 10^3/uL (0.2-0.9); Monocytes % 10.6 %; Neutrophils # 3.27 10^3/uL (1.8-7.7); Neutrophils % 62.8 %; Nucleated Red Blood Cells % 0 %; Platelet Count 221 10^3/cmm (130-400); Red Blood Count 4.16 10^6/uL (4.1-5.3); Red Cell Distribution Width 12.8 % (12.1-15.1); White Blood Count 5.2 10^3/uL (4.0-10.0)
[2020-06-27 04:10] LABS: Anion Gap 9.8 (5-19); Blood Urea Nitrogen 10 mg/dL (8-23); Calcium 8.2 mg/dL (8.5-10.5); Carbon Dioxide 27 mmol/L (22-29); Chloride 91 mmol/L (98-107); Glucose 94 mg/dL (65-115); Osmolality Calculated 257 mOsm/kg (285-295); Potassium 3.8 mmol/L (3.5-5.1); Sodium 124 mmol/L (136-145)
[2020-06-27 04:25] LABS: Cortisol Random 10.49 ug/dL (2.47-19.5)
[2020-06-27 07:15] LABS: Sodium 126 mmol/L (136-145)
--- NOTE | 2020-06-27 08:14 | CT_ITS ---
WS: [id number] CT ABDOMEN PELVIS TECHNIQUE: Noncontrast CT of the abdomen and pelvis with coronal and sagittal reformatted images. CLINICAL INFORMATION: nuasea, vomiting COMPARISON: None. DLP: 998.[address] scans at [facility] use at least one of these dose optimization techniques: automat ed exposure control; mA and/or kV adjustment per patient size (includes targeted exams where dose is matched to clinical indication); or iterative reconstruction. FINDINGS: Distended stomach with products and air-fluid levels. No evidence of small or large bowel obstruction . Noncontrast liver is normal. Normal GE junction. Normal noncontrast spleen. Lung bases are well aer ated. Adrenal gland is normal. Left adrenal adenoma measuring 12 mm. No hydronephrosis in either kidn ey. No obstructing renal or ureteral calculi. Noncontrast gallbladder is contracted. Tiny fat-containing umbilical hernia. Sigmoid diverticulosis. No evidence of acute diverticulitis. No evidence of small or large bowel obstruction. Moderate aortic calcification. Normal caliber abdominal aorta. No abdominal or pelvic lymphadenopathy. No inguinal l ymphadenopathy. CT/CT abdomen pelvis wo con [id number] IMPRESSION: 1. Distended stomach with air-fluid levels and food products. 2. No evidence of small or large bowel obstruction. 3. Sigmoid diverticulosis. No evidence of acute diverticulitis. 4. No free fluid in the abdomen or pelvis. 5. Incidental left adrenal adenoma. 6. No hydronephrosis in either kidney
[2020-06-27] MEDS: ondansetron 2 mg/ML SDV 2 mL 4 MG IVP (08:20)
[2020-06-27] MEDS: sodium chloride 1 gm Tablet 2 GM PO (08:28)
[2020-06-27] MEDS: amlodipine 5 mg Tablet PO (08:36)
[2020-06-27] MEDS: piperacillin-tazobactam 3.375 GM in sodium chloride 0.9% (plus) 50 ML IV (08:38)
[2020-06-27 09:03] LABS: Procalcitonin 0.03 ng/mL (0-0.5)
[2020-06-27 09:14] LABS: C Reactive Protein 1.3 mg/L (0.0-4.9)
[2020-06-27 09:26] LABS: Erythrocyte Sedimentation Rate 7 mm/hr (0-15)
--- NOTE | 2020-06-27 09:41 | PC.SOCIAL ---
IMM Update Pg.2 of IMM updated and reviewed with patient, who verbalized understanding. Copy provided.
--- NOTE | 2020-06-27 09:48 | PC.NURSE ---
Nurse held morning beta wang atenolol. Heart rate is in the Mid 50's. Currently blood pressure is 125 systolic.
--- NOTE | 2020-06-27 10:33 | PC.NURSE ---
Transferred patient to CT for CT of the Abdomen. Transport was uneventful.
--- NOTE | 2020-06-27 10:49 | PM.PN ---
Subjective Subjective: Interval history: No new issues today. Nausea has resolved, she has good oral intake of the food which is being said to her. Tolerating the salt tablets nicely. Blood pressure noted to be a little elevated. No extremity edema or other hypervolemic symptoms. She remains keen to go home. Medications: Reviewed: Yes Vitals/I&O/Wt Last Vital Signs Temp 97.4 F L 06/27/20 09:15 Pulse 57 L 06/27/20 10:15 Resp 14 06/27/20 10:15 BP 122/45 06/27/20 10:15 Pulse Ox 98 06/27/20 10:15 06/26/20 06/27/20 06/27/20 22:59 06:59 14:59 Intake Total 650 / 1380 50 / 1430 120 / 120 Output Total 1050 / 1850 325 / 2175 250 / 250 Balance -400 / -470 -275 / -745 -130 / -130 Physical Exam Narrative: EXAM NARRATIVE: Constitutional: Awake, comfortable HEENT: Wet mucosa, no jvp, non icteric Lungs: Bilaterally clear without discernible wheeze or rales in all lung zones CVS: S1 S2, no murmurs Abdo: Soft, BS ok Ext 4: Minimal edema, peripheral perfusion with no cyanosis Neurological: Grossly non-focal Data : 06/27/20 02:19 06/27/20 06:35 Micro: Microbiology 06/23/20 21:22 Urine Culture - Final Urine,Clean Catch Escherichia coli Morganella morganii A&P Additional A&P Information 1. Euvolemic hyponatremia Sodium now improving nicely at a safe rate Continue fluid restriction, encourage oral intake of food. Drop salt tabs to 1g BID Repeat labs at 2pm 2. Hemodynamics Blood pressure is robust, no changes to antihypertensive therapy. 3. 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
[2020-06-27 15:02] LABS: Anion Gap 12.6 (5-19); Blood Urea Nitrogen 13 mg/dL (8-23); Calcium 8.1 mg/dL (8.5-10.5); Carbon Dioxide 27 mmol/L (22-29); Chloride 92 mmol/L (98-107); Glucose 96 mg/dL (65-115); Osmolality Calculated 266 mOsm/kg (285-295); Potassium 3.6 mmol/L (3.5-5.1); Sodium 128 mmol/L (136-145)
[2020-06-27 16:02] LABS: Osmolality Serum 246 mOsm/kg (278-305)
[2020-06-27 16:02] LABS: Osmolality Urine 397 mOsm/kg (50-1200)
--- NOTE | 2020-06-27 16:08 | PM.DCS ---
Discharge Providers Date of Admission: 06/24/20 00:04 Date of Discharge: June 27, 2020 Attending Provider at Admission: Ritu Barillas MD Attending Provider at Discharge: Jon Lemos MD Primary Care Provider: BEBO Arias Diagnoses at Discharge Discharge Diagnosis (1) Acute hyponatremia: Status: Acute Reason for Visit Reason for Visit: POSSIBLE LOW SODIUM Hospital Course Hospital Course This is a 80-year-old female with a past medical history of GERD, hypertension, who presents [facility] due to nausea, vomiting, diarrhea For acute hyponatremia, initially secondary to dehydration and hypovolemia secondary to diarrheal illness and high fluid intake and low solute intake, then became euvolemic hyponatremia, with SIADH, 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 Discharged on salt tablets 1 g twice daily for 2 weeks, repeat CMP in 2 weeks, at [facility]. Paroxetine has been held. PPIs have been held. CT chest no acute findings. CT abdomen no acute findings. For E. coli, Morganella morganii UTI, discharged on Levaquin Physical Exam Const: COMMON NORMALS: no acute distress and patient oriented x3 HENMT: COMMON NORMALS: normocephalic HEAD & SCALP: normocephalic Neck/C-Spine: COMMON NORMALS: no JVD Resp: COMMON NORMALS: normal respiratory effort, No retractions, No use of accessory muscles and clear to auscultation bilaterally AUSCULTATION: clear to auscultation bilaterally Cardio: COMMON NORMALS: no JVD, regular rate, regular rhythm, S1 normal heart sound present and S2 normal heart sound present RATE: regular rate RHYTHM: regular rhythm HEART SOUNDS: S1 normal heart sound present and S2 normal heart sound present GI: COMMON NORMALS: Normal to inspection, nondistended, normoactive bowel sounds present, Soft to palpation, non-tender, No hepatosplenomegaly present, no masses and no bruits PALPATION: Yes Soft to palpation and Yes No hepatosplenomegaly present Extremity: COMMON NORMALS: capillary refill normal, no clubbing, cyanosis or edema, no calf tenderness and no pedal edema Neuro: COMMON NORMALS: patient oriented x3 Psych: COMMON NORMALS: mental status grossly normal Discharge Data Data Completed and Pending: Completed Studies During Hospitalization Category Date Time Status CT abdomen pelvis wo con [id number] Rout ine Cat Scan 06/27/20 08:[address] chest wo con 7 [id number] Routine Cat Scan 06/26/20 08:43 Completed XR chest 1V kera ble [id number] Stat Exams 06/23/20 22:51 Completed Pending at discharge Category Date Time Status Blood Culture Sta t Lab 06/27/20 10:40 Results Clostridioides Di fficile PCR Routin e Lab 06/27/20 08:13 Uncollected Urine Culture Sta t Lab 06/27/20 09:30 Received Labs from last 24 hours 06/27/20 06/27/20 06/27/20 14:00 06:35 02:19 WBC RBC Hgb Hct MCV MCH MCHC RDW Plt Count MPV Neut % (Auto) Lymph % (Auto) Webster % (Auto) Eos % (Auto) Baso % (Auto) Neut # (Auto) Lymph # (Auto) Webster # (Auto) Eos # (Auto) Baso # (Auto) Nucleated RBC % (a uto) Nucleated RBCs # ESR Sodium 128 L 126 L Potassium 3.6 Chloride 92 L Carbon Dioxide 27 Anion Gap 12.6 BUN 13 Creatinine 0.8 GFR Calculation Not Reportable Glucose 96 Serum Osmolality Calculated Osmolal ity 266 L Calcium 8.1 L C-Reactive Protein 1.3 Procalcitonin 0.03 Random Cortisol Urine Osmolality 06/27/20 06/27/20 06/27/20 02:19 02:19 02:19 WBC RBC Hgb Hct MCV MCH MCHC RDW Plt Count MPV Neut % (Auto) Lymph % (Auto) [place] % (Auto) Eos % (Auto) Baso % (Auto) Neut # (Auto) Lymph # (Auto) Webster # (Auto) Eos # (Auto) Baso # (Auto) Nucleated RBC % (a uto) Nucleated RBCs # ESR 7 Sodium 124 L Potassium 3.8 Chloride 91 L Carbon Dioxide 27 Anion Gap 9.8 BUN 10 Creatinine 0.5 GFR Calculation Not Reportable Glucose 94 Serum Osmolality Calculated Osmolal ity 257 L Calcium 8.2 L C-Reactive Protein Procalcitonin Random Cortisol 10.49 Urine Osmolality 06/27/20 06/26/20 06/24/20 02:19 22:21 05:15 WBC 5.2 RBC 4.16 Hgb 12.4 Hct 35.6 L MCV 85.6 MCH 29.8 MCHC 34.8 RDW 12.8 Plt Count 221 MPV 10.4 Neut % (Auto) 62.8 Lymph % (Auto) 23.3 Webster % (Auto) 10.6 Eos % (Auto) 2.1 Baso % (Auto) 1.0 Neut # (Auto) 3.27 Lymph # (Auto) 1.2 Webster # (Auto) 0.6 Eos # (Auto) 0.1 Baso # (Auto) 0.1 Nucleated RBC % (a uto) 0 Nucleated RBCs # 0.0 ESR Sodium 124 L Potassium Chloride Carbon Dioxide Anion Gap BUN Creatinine GFR Calculation Glucose Serum Osmolality Calculated Osmolal ity Calcium C-Reactive Protein Procalcitonin Random Cortisol Urine Osmolality 397 06/24/20 05:03 WBC RBC Hgb Hct MCV MCH MCHC RDW Plt Count MPV Neut % (Auto) Lymph % (Auto) Webster % (Auto) Eos % (Auto) Baso % (Auto) Neut # (Auto) Lymph # (Auto) Webster # (Auto) Eos # (Auto) Baso # (Auto) Nucleated RBC % (a uto) Nucleated RBCs # ESR Sodium Potassium Chloride Carbon Dioxide Anion Gap BUN Creatinine GFR Calculation Glucose Serum Osmolality 246 L Calculated Osmolal ity Calcium C-Reactive Protein Procalcitonin Random Cortisol Urine Osmolality Vitals: Last Vital Signs Temp 98.0 F 06/27/20 14:00 Pulse 65 06/27/20 14:00 Resp 16 06/27/20 14:00 BP 126/49 06/27/20 14:00 Pulse Ox 96 06/27/20 14:00 Discharge Plan Discharge Patient Disposition: Home Condition: Stable Prescriptions: New sodium chloride 1 gram Tablet 1 g PO BID 14 Days Qty: 28 RF: 0 amlodipine 5 mg Tablet 5 mg PO DAILY 30 Days Qty: 30 RF: 0 levofloxacin 500 mg tablet 500 mg PO DAILY 5 Days Qty: 5 RF: 0 Continued albuterol sulfate 90 mcg/actuation HFA aerosol inhaler 2 puff INHALATION Q4H PRN (Reason: shortness of breath or wheezing) 30 Days Qty: 8.5 RF: 3 atenolol 50 mg tablet 50 mg PO BID 90 Days Qty: 180 RF: 1 fluticasone propionate 50 mcg/actuation spray,suspension 1 spray INTRANASAL DAILY PRN (Reason: nasal congestion) 90 Days Qty: 16 RF: 3 triamcinolone acetonide 0.1 % cream 1 applic TOPICAL DAILY PRN (Reason: itching) 30 Days Qty: 15 RF: 2 Discontinued paroxetine HCl [Paxil] 20 mg tablet 20 mg PO DAILY 90 Days Qty: 90 RF: 1 pantoprazole [Protonix] 40 mg tablet,delayed release (DR/EC) 40 mg PO Q12H 90 Days Qty: 180 RF: 1 Discharge Orders: Discharge Order (Routine); Ordered 06/27/20 Ordered By: Jon Lemos Referrals: DUSTIN Stinson, TELEPHONE LINEMAN [Primary Care Provider] - Discharge Diet: Regular Discharge Activity: Resume usual activity Patient Instructions: Opioid Safety Discharge Attestations Time Spent in Discharge Care*: less than 30 min Quality Metrics Clinical Quality Measures During this hospital stay, did patient experience: None Coding Level of Care Code Acute Chg DC note Diagnoses Acute hyponatremia E87.1
--- NOTE | 2020-06-27 16:45 | PC.NURSE ---
Received disharge orders from Dr marie. Nurse completed discharge assessment, Discharge education, arranged appointment with PCP, and sent medications to preferred pharmacy. IV discontinued. Patient has called family and is waiting on ride.
== END 2020-06-27 17:12 | disposition home or self-care (01) | DRG 644 ==
LOC: ER 23:48 → MEDSURG 06-24 00:04 → ICU 06-24 19:24
PROVIDERS: Internal Medicine; Internal Medicine Nephrology; Nurse Practitioner Family; Admitting Provider Internal Medicine; Emergency Provider Family Medicine; PCP Nurse Practitioner Family; Visit Provider Family Medicine
DX: E22.2 Syndrome of inappropriate secretion of antidiuretic hormone (principal); N39.0 Urinary tract infection, site not specified; E87.6 Hypokalemia; B96.29 Other Escherichia coli [E. coli] as the cause of diseases classified elsewhere; E86.0 Dehydration; E86.1 Hypovolemia; I10 Essential (primary) hypertension; F41.1 Generalized anxiety disorder; K21.9 Gastro-esophageal reflux disease without esophagitis; Z90.710 Acquired absence of both cervix and uterus
CPT/HCPCS: 36415; 71045; 71250; 74176; 80048; 80053; 81000; 81001; 82533; 83605; 83930; 83935; 84145; 84295; 84300; 84443; 84550; 85025; 85651; 86140; 87040; 87077; 87086; 87186; 87400; 96374; 97116; 97161; 99285; J1940; J2405; J2543; J7030; J7131; Q3014

== ENCOUNTER → 2020-07-01 09:12 | Outpatient (BNVA) | payer MEDICARE, SELFPAY | PROVIDERS: PCP Nurse Practitioner Family; Visit Provider Nurse Practitioner Family | DX: E87.1 Hypo-osmolality and hyponatremia (principal); N39.0 Urinary tract infection, site not specified; I10 Essential (primary) hypertension | CPT/HCPCS: 80053; 81003 ==

== ENCOUNTER → 2020-07-05 10:39 | Outpatient (BNVA) | payer MEDICARE, SELFPAY | PROVIDERS: PCP Nurse Practitioner Family; Visit Provider Nurse Practitioner Family | DX: I10 Essential (primary) hypertension (principal); Z13.6 Encounter for screening for cardiovascular disorders; Z79.899 Other long term (current) drug therapy; E55.9 Vitamin D deficiency, unspecified | CPT/HCPCS: 80053; 80061; 81003; 82306; 83036; 84443; 85025 ==

== ENCOUNTER → 2020-07-18 13:38 | Outpatient (BNVA) | payer MEDICARE, SELFPAY | PROVIDERS: PCP Nurse Practitioner Family; Visit Provider Nurse Practitioner Family | DX: I10 Essential (primary) hypertension (principal) | CPT/HCPCS: 80053 ==

== ENCOUNTER → 2020-07-28 10:18 | Outpatient (BNVA) | payer MEDICARE, SELFPAY | PROVIDERS: PCP Nurse Practitioner Family; Visit Provider Nurse Practitioner Family | DX: E87.1 Hypo-osmolality and hyponatremia (principal); R53.1 Weakness; R53.82 Chronic fatigue, unspecified | CPT/HCPCS: 80048; 85025 ==

== ENCOUNTER → 2020-09-14 08:17 | Outpatient (BNVA) | payer MEDICARE, SELFPAY | PROVIDERS: PCP Nurse Practitioner Family; Visit Provider Nurse Practitioner Family | DX: E87.1 Hypo-osmolality and hyponatremia (principal) | CPT/HCPCS: 36415; 80053 ==

== ENCOUNTER → 2020-10-20 09:53 | Outpatient (BNVA) | payer MEDICARE, SELFPAY | PROVIDERS: PCP Nurse Practitioner Family; Visit Provider Nurse Practitioner Family | DX: R63.0 Anorexia (principal); F41.1 Generalized anxiety disorder; I10 Essential (primary) hypertension; Z79.899 Other long term (current) drug therapy; J30.89 Other allergic rhinitis; K21.9 Gastro-esophageal reflux disease without esophagitis | CPT/HCPCS: 80053; 81003; 84439; 84443; 85025; 87086 ==

== ENCOUNTER 2021-10-05 09:43 | Outpatient (CLI) | payer BC, SELFPAY ==
--- NOTE | 2021-10-05 09:50 | MM_ITS ---
WS: [id number] SCREENING DIGITAL TOMOSYNTHESIS MAMMOGRAM WITH CAD HISTORY: Z12.31 - Encounter for screening mammogram for malignant ... COMPARISON: None available. Bilateral CC and MLO with tomosynthesis views submitted. Synthetic mammography reviewed. Computer aid ed detection analyzed. Breast composition: There are scattered areas of fibroglandular density. No suspicious masses, microc alcifications or architectural distortion. MM/[place] [id number] IMPRESSION: BI-RADS: 1-Negative FOLLOW UP: 1 Year Follow-up
== END 2021-10-05 09:44 | disposition home or self-care (01) ==
LOC: RAD 09:44
PROVIDERS: PCP Nurse Practitioner Family; Visit Provider Family Medicine
DX: Z12.31 Encounter for screening mammogram for malignant neoplasm of breast (principal)
CPT/HCPCS: 77063; 77067

== ENCOUNTER → 2022-04-09 14:51 | Outpatient (BNVA) | payer MEDICARE, SELFPAY | PROVIDERS: PCP Nurse Practitioner Family; Visit Provider Nurse Practitioner | DX: R69 Illness, unspecified (principal) | CPT/HCPCS: 87400; 87426 ==

== ENCOUNTER → 2022-09-14 08:03 | Outpatient (BNVA) | payer MEDICARE, SELFPAY | PROVIDERS: PCP Nurse Practitioner Family; Visit Provider Student in an Organized Health Care Education/Training Program | DX: M65.332 Trigger finger, left middle finger (principal) | CPT/HCPCS: 20550; 73130; 99204; J3301; J3490 ==

== ENCOUNTER → 2023-08-05 12:04 | Outpatient (BNVA) | payer MEDICARE, SELFPAY | PROVIDERS: PCP Nurse Practitioner Family; Visit Provider Nurse Practitioner Family | DX: E55.9 Vitamin D deficiency, unspecified (principal); I10 Essential (primary) hypertension; Z79.899 Other long term (current) drug therapy; D64.9 Anemia, unspecified; R53.83 Other fatigue; Z13.6 Encounter for screening for cardiovascular disorders; G93.39 Other post infection and related fatigue syndromes | CPT/HCPCS: 80053; 80061; 81003; 82306; 82607; 82728; 82746; 83036; 83550; 84443; 85025 ==

== ENCOUNTER → 2023-09-17 13:57 | Outpatient (BNVA) | payer MEDICARE, SELFPAY | PROVIDERS: PCP Nurse Practitioner Family; Visit Provider Nurse Practitioner Family | DX: E55.9 Vitamin D deficiency, unspecified (principal); F41.9 Anxiety disorder, unspecified; I10 Essential (primary) hypertension | CPT/HCPCS: 80053; 82306; 85025 ==

== ENCOUNTER 2023-09-19 09:04 | Emergency (ER) | payer MEDICARE, SELFPAY ==
[2023-09-19 09:46] LABS: Basophils # 0.1 10^3/uL (0.0-0.1); Basophils % 0.9 %; Eosinophils # 0.1 10^3/uL (0.0-0.8); Eosinophils % 1.1 %; Hematocrit 40.3 % (36-47); Lymphocytes # 0.9 10^3/uL (0.8-4.8); Lymphocytes % 14.5 %; Mean Corpuscular HGB Conc 34.7 g/dL (30-55); Mean Corpuscular Hemoglobin 30.3 pg (27-33); Mean Corpuscular Volume 87.2 fl (85-98); Mean Platelet Volume 9.9 fL (7.4-10.4); Monocytes # 0.4 10^3/uL (0.2-0.9); Neutrophils # 4.91 10^3/uL (1.8-7.7); Neutrophils % 77.2 %; Nucleated Red Blood Cells % 0 %; Platelet Count 192 10^3/cmm (157-399); Red Blood Count 4.62 10^6/uL (3.85-5.65); Red Cell Distribution Width 12.7 % (12.1-15.1); White Blood Count 6.36 10^3/uL (3.29-11.43)
[2023-09-19 09:51] VITALS: BP 156/86; PULSE 75; RESP 18; TEMP 36.8; O2SAT 96; BMI 23.2
--- NOTE | 2023-09-19 09:57 | ECG_ITS ---
[facility] Test Date: 2023-09-19 Pat Name: Destiny Duong Department: Room: Gender: Female Coat Joiner: : 1940 Requested By: Rafi Hernandez Order Number: [id number] Davon MD: Kennedi Hoover M.D. Measurements Intervals [place] Rate: 69 P: 76 FL: 178 QRS: 3 QRSD: 86 T: 45 QT: 375 QTc: 404 Interpretive Statements SINUS RHYTHM NONSPECIFIC ST & T-WAVE ABNORMALITY No previous ECG available for comparison Electronically Signed On 09-20-2023 0:53:14 CDT by Kennedi Hoover M.D. [id number]
--- NOTE | 2023-09-19 09:57 | XR_ITS ---
WS: [id number] PORTABLE CHEST HISTORY: dyspnea/cough COMPARISON: 06/23/2020 Slight elevation of the RIGHT hemidiaphragm is stable. Linear scar along the LEFT fissure in the cent ral lung. No mass. No pneumonia. No pleural effusion or pneumothorax. Cardiac size: Normal. Mediastinum/Aorta: Mild atherosclerosis aorta. No osseous abnormality seen. XR/XR chest 1V portable [id number] IMPRESSION: 1. No pulmonary mass. 2. Stable slight elevation RIGHT hemidiaphragm. 3. Mild atherosclerosis aorta. 4. Linear scar central LEFT lung unchanged since 06/23/2020.
--- NOTE | 2023-09-19 09:57 | ED_ITS ---
HPI - General Adult 2 General: Chief complaint: General Medical Stated complaint: abd pain Time Seen by Provider: 09/19/23 09:15 History of Present Illness: 83-year-old female [facility] with complaints of generally not feeling well. She describes it as feeling spasms intermittently in her abdomen upper and lower extremities. She recently was titrated down on alprazolam and started on citalopram. She started taking the citalopram daily 2 to 3 days ago states she has not felt well at all since. She has not noticed anything else that seems to make it better or worse denies any dysuria urgency or frequency no vomiting no diarrhea no hematochezia melena hematemesis coffee- ground emesis no hematuria no history of kidney stones no flank pain. She not having any symptoms at all right now. No history of coronary artery disease. mentions that her appetite has been poor and she has lost several pounds in the last few weeks. Associated symptoms: Reports nausea; Deny chest pain, dyspnea, rash or vomiting Review of Systems 2 Const: Denies: fever(s) or chills Card: Denies: chest pain Resp: Denies: dyspnea GI: Reports: abdominal pain (Intermittent spasms), nausea and dysphagia; Denies: vomiting, hematemesis, coffee ground emesis, diarrhea, hematochezia or melena : Denies: dysuria, urinary frequency or urinary urgency Musc: Denies: neck pain or back pain Skin/Breast: Denies: rash PFSH ED 2 PFSH: Medical History Memory loss Allergic dermatitis Fatigue Anemia Anxiety and depression Dry skin dermatitis Dysphagia Appetite impaired Contact dermatitis, allergic Environmental and seasonal allergies Otitis externa Hypertension screen Medication management Vitamin D deficiency Generalized anxiety disorder See comments below. GERD without esophagitis Essential hypertension Surgical History Status post appendectomy Status post knee surgery Status post hysterectomy Status post cataract extraction Family History Father Heart disease Mother Cancer Social History Smoking and tobacco/nicotine status: never used tobacco/nicotine Alcohol intake: never Substance/Drug Use: never Female Reproductive History: Para: 2 Physical Exam 2 Const: GENERAL APPEARANCE: cooperative and comfortable O RIENTATION/CONSCIOUSNESS: Yes awake, Yes oriented to person, Yes oriented to place and Yes oriented to time HENMT: COMMON NORMALS: normocephalic, atraumatic and hearing grossly normal bilaterally HEAD & SCALP: normocephalic and atraumatic Resp: COMMON NORMALS: normal respiratory effort, No retractions, No use of accessory muscles and clear to auscultation bilaterally AUSCULTATION: clear to auscultation bilaterally Cardio: COMMON NORMALS: regular rate, regular rhythm and No murmurs present (Cardio) RATE: regular rate RHYTHM: regular rhythm GI: COMMON NORMALS: Soft to palpation and No hepatosplenomegaly present A USCULTATION: Yes normoactive bowel sounds PALPATION: Yes Soft to palpation, No Tenderness to palpation present (GI), No Guarding due to palpation present (GI) and Yes No hepatosplenomegaly present Extremity: COMMON NORMALS: normal to inspection, capillary refill normal, no clubbing, cyanosis or edema, no calf tenderness and no pedal edema Neuro: SENSORIUM/ORIENTATION: Yes oriented to person, Yes oriented to place and Yes oriented to time Skin: COMMON NORMALS: no rashes or lesions noted GENERAL SKIN EXAM: no rashes or lesions noted Course 2 Vital Signs: Vital signs: Vital Signs Temperature 98.2 F 09/19/23 14:01 Pulse Rate 75 09/19/23 14:01 Respiratory Rate 18 09/19/23 14:01 Blood Pressure 147/81 09/19/23 14:01 Pulse Oximetry 96 09/19/23 14:01 Oxygen Delivery Me thod Room Air 09/19/23 12:22 [facility] - General Adult Medical Decision Making Labs and imaging reviewed no significant findings patient have a little bit of hyponatremia she is given IV fluid she states she is feeling much better will discharge patient home she can use Reglan as needed follow-up with her primary care doctor has any worsening or change symptoms return to the emergency room. She may need further evaluation potentially including endoscopy Lab Data 09/19/23 09:38 09/19/23 09:38 Radiology Impressions Chest X-Ray 09/19/23 09:57 IMPRESSION: 1. No pulmonary mass. 2. Stable slight elevation RIGHT hemidiaphragm. 3. Mild atherosclerosis aorta. 4. Linear scar central LEFT lung unchanged since 06/23/2020. Abdomen/Pelvis CT 09/19/23 11:13 IMPRESSION: 1. No acute abdominal or pelvic abnormalities. 2. Mild sigmoid diverticulosis without evidence for acute diverticulitis. 3. No GI tract obstruction. 4. Prior appendectomy and hysterectomy. 5. Mild renal atrophy with no obstruction. 6. Stable LEFT adrenal mass which is probably an adenoma. 7. No ascites. Laboratory Results WBC 6.36 10^3/uL (3.29-11.43) 09/19/23 09:38 RBC 4.62 10^6/uL (3.85-5.65) 09/19/23 09:38 Hgb 14.00 g/dL (11.27-16.99) 09/19/23 09:38 Hct 40.3 % (36-47) 09/19/23 09:38 MCV 87.2 fl (85-98) 09/19/23 09:38 MCH 30.3 pg (27-33) 09/19/23 09:38 MCHC 34.7 g/dL (30-55) 09/19/23 09:38 RDW 12.7 % (12.1-15.1) 09/19/23 09:38 Plt Count 192 10^3/cmm (157-399) 09/19/23 09:38 MPV 9.9 fL (7.4-10.4) 09/19/23 09:38 Neut % (Auto) 77.2 % 09/19/23 09:38 Lymph % (Auto) 14.5 % 09/19/23 09:38 Tyler % (Auto) 6.0 % 09/19/23 09:38 Eos % (Auto) 1.1 % 09/19/23 09:38 Baso % (Auto) 0.9 % 09/19/23 09:38 Neut # (Auto) 4.91 10^3/uL (1.8-7.7) 09/19/23 09:38 Lymph # (Auto) 0.9 10^3/uL (0.8-4.8) 09/19/23 09:38 Tyler # (Auto) 0.4 10^3/uL (0.2-0.9) 09/19/23 09:38 Eos # (Auto) 0.1 10^3/uL (0.0-0.8) 09/19/23 09:38 Baso # (Auto) 0.1 10^3/uL (0.0-0.1) 09/19/23 09:38 Nucleated RBC % (auto) 0 % 09/19/23 09:38 Nucleated RBCs # 0.0 /100WBC 09/19/23 09:38 Sodium 126 mmol/L (136-145) L 09/19/23 09:38 Potassium 3.5 mmol/L (3.5-5.1) 09/19/23 09:38 Chloride 92 mmol/L (98-107) L 09/19/23 09:38 Carbon Dioxide 20 mmol/L (22-29) L 09/19/23 09:38 Anion Gap 17.5 (5-19) 09/19/23 09:38 BUN 10 mg/dL (8-23) 09/19/23 09:38 Creatinine 0.6 mg/dL (0.5-0.9) 09/19/23 09:38 GFR Calculation Not Reportable 09/19/23 09:38 Glucose 96 mg/dL (65-115) 09/19/23 09:38 Calculated Osmolality 261 mOsm/kg (285-295) L 09/19/23 09:38 Calcium 8.3 mg/dL (8.5-10.5) L 09/19/23 09:38 Total Bilirubin 0.8 mg/dL (0.15-1.2) 09/19/23 09:38 AST 51 U/L (0-32) H 09/19/23 09:38 ALT 26 U/L (0-33) 09/19/23 09:38 Alkaline Phosphatase 68 U/L (35-105) 09/19/23 09:38 Total Protein 6.7 g/dL (6.6-8.7) 09/19/23 09:38 Albumin 4.0 g/dL (3.5-5.2) 09/19/23 09:38 Globulin 2.7 g/dL (1.3-4.6) 09/19/23 09:38 Lipase 41 U/L (13-60) 09/19/23 09:38 Urine Color Yellow (Yellow) 09/19/23 11:24 Urine Appearance Clear (CLEAR) 09/19/23 11:24 Urine pH 6 (5-7) 09/19/23 11:24 Ur Specific [place] 1.010 (1.005-1.030) 09/19/23 11:24 Urine Protein Neg (Negative) 09/19/23 11:24 Urine Glucose (UA) Norm (Normal) 09/19/23 11:24 Urine Ketones 2+ (Negative) H 09/19/23 11:24 Urine Blood Neg (Negative) 09/19/23 11:24 Urine Nitrate Negative (Negative) 09/19/23 11:24 Urine Bilirubin Neg (Negative) 09/19/23 11:24 Urine Urobilinogen Norm mg/dL (Negative) 09/19/23 11:24 Ur Leukocyte Esterase Negative (Negative) 09/19/23 11:24 All radiology interpretation(s) finalized by discharge Discharge Plan Discharge Patient Disposition: Home Clinical Impression: Abdominal pain Condition: Stable Prescriptions: New Reglan 10 mg tablet 10 mg PO Q6H 7 Days Qty: 28 0RF No Action albuterol sulfate 90 mcg/actuation HFA aerosol inhaler 2 puff INHALATION Q4H PRN (Reason: shortness of breath or wheezing) 30 Days Qty: 8.5 3RF citalopram 10 mg tablet 10 mg PO DAILY 30 Days Qty: 30 2RF alprazolam 0.25 mg tablet 0.25 mg PO TID MDD 0.75mg PRN (Reason: anxiety) 30 Days Qty: 90 3RF Discharge Orders: Discharge ED (Routine); Ordered 09/19/23 Ordered By: Rafi Brewer Referrals: Mounika Helm FNP [Primary Care Provider] - Discharge Diet: Advance as tolerated Discharge Activity: Increase activity as tolerated Patient Instructions: Abdominal Pain (ED), Opioid Safety, Pain Management Activity Restrictions/Additional Instructions: Thank you for choosing [facility] for your healthcare needs today. It is very important that you follow up as instructed or that you return to the Emergency Department should you have concerns or if your condition changes or worsens in any way. You are seen emergency room complaints of what he describes as spasms in her abdomen CT of your abdomen is negative your sodium was slightly low but there were no other abnormalities. Recommend that you advance diet as tolerated increase your fluid intake. You were given IV fluids in the emergency room. You can use the Reglan as needed for nausea. Follow-up with your primary care doctor if symptoms persist you may need to consider further evaluation through primary care such as endoscopy. Coding Level of Care Code ED Teacher Of The Visually Impaired for Luiz Real
[2023-09-19 10:03] LABS: Alanine Aminotransferase 26 U/L (0-33); Alkaline Phosphatase 68 U/L (35-105); Anion Gap 17.5 (5-19); Aspartate Amino Transferase 51 U/L (0-32); Blood Urea Nitrogen 10 mg/dL (8-23); Calcium 8.3 mg/dL (8.5-10.5); Carbon Dioxide 20 mmol/L (22-29); Chloride 92 mmol/L (98-107); Creatinine Clr Calc Pharmacy 43.8832; Globulin 2.7 g/dL (1.3-4.6); Glucose 96 mg/dL (65-115); Lipase 41 U/L (13-60); Osmolality Calculated 261 mOsm/kg (285-295); Potassium 3.5 mmol/L (3.5-5.1); Sodium 126 mmol/L (136-145); Total Bilirubin 0.8 mg/dL (0.15-1.2); Total Protein 6.7 g/dL (6.6-8.7)
[2023-09-19 10:04] VITALS: BP 156/86; PULSE 74; O2SAT 97
[2023-09-19] MEDS: sodium chloride 0.9% 1,000 ML 999 ML IV (10:15)
--- NOTE | 2023-09-19 11:13 | CT_ITS ---
WS: [id number] CT ABDOMEN AND PELVIS WITH CONTRAST HISTORY: abd pain TECHNIQUE: Imaging performed of the abdomen and pelvis with IV contrast. Single phase imaging of the abdomen. Coronal and sagittal reformats are submitted. All CT scans at [facility] use at fina st one of these dose optimization techniques: automated exposure control; mA and/or kV adjustment per patient size (includes targeted exams where dose is matched to clinical indication); or iterative re construction. IV CONTRAST: Omnipaque 350; 100 mL IV. Oral contrast: No DLP: 451.49 mGy.cm COMPARISON: 06/27/2020 Lower thorax: Lung bases are clear. Heart is normal size. No hiatal hernia. Liver/biliary system: Normal size with no intrahepatic dilatation. Gallbladder: Normal. No gallstones or wall thickening. No pericholecystic fluid. Pancreas: Normal size pancreas and pancreatic duct. No adjacent inflammation. Spleen: Normal size spleen. No mass or infarct. Adrenal glands: Normal. Stable LEFT adrenal nodule measuring 13 mm. Right kidney: Mild atrophy. No obstruction or mass. Left kidney: Mild atrophy. No obstruction or mass. Aorta: Mild atherosclerosis with no aneurysm. Calcification at the origin of the SMA and celiac axis. No occlusions. Lymphadenopathy: None. Free fluid: None. GI tract: Normally distended stomach. No small bowel obstruction. Prior appendectomy. Mild diffuse co nstipation. Mild sigmoid diverticulosis. No evidence for acute diverticulitis. Abdominal wall: Unremarkable abdominal wall. No hernia. Pelvis: Prior hysterectomy. Nondistended urinary bladder. Bones: Unremarkable. CT/CT abdomen pelvis w con* [id number] IMPRESSION: 1. No acute abdominal or pelvic abnormalities. 2. Mild sigmoid diverticulosis without evidence for acute diverticulitis. 3. No GI tract obstruction. 4. Prior appendectomy and hysterectomy. 5. Mild renal atrophy with no obstruction. 6. Stable LEFT adrenal mass which is probably an adenoma. 7. No ascites.
[2023-09-19] MEDS: iohexol 350 mg/mL 500 mL Btl (per mL) IV (11:43)
[2023-09-19 11:52] LABS: Add Urine Microscopic? NO; Charge for UA Resulting for Rev
[2023-09-19 12:01] LABS: Bilirubin Urine Neg (Negative); Blood Urine Neg (Negative); Glucose Urine UA Norm (Normal); Ketones Urine 2+ (Negative); Leukocyte Esterase Urine Negative (Negative); Nitrate Urine Negative (Negative); Protein Urine Neg (Negative); Urine Appearance Clear (CLEAR); Urine Color Yellow (Yellow); Urobilinogen Urine Norm (Negative); pH Urine 6 (5-7)
[2023-09-19 12:22] VITALS: BP 145/71; PULSE 76; O2SAT 96
[2023-09-19 13:27] VITALS: BP 147/81; PULSE 75; O2SAT 96
[2023-09-19 14:01] VITALS: BP 147/81; PULSE 75; RESP 18; TEMP 36.8; O2SAT 96
== END 2023-09-19 14:04 | disposition home or self-care (01) ==
PROVIDERS: Emergency Provider Family Medicine; PCP Nurse Practitioner Family
DX: R10.9 Unspecified abdominal pain (principal); I10 Essential (primary) hypertension
CPT/HCPCS: 36415; 71045; 74177; 80053; 81003; 83690; 85025; 93005; 99285; J7030; Q9967

== ENCOUNTER → 2023-12-25 10:31 | Outpatient (BNVA) | payer MEDICARE, SELFPAY | PROVIDERS: PCP Nurse Practitioner Family; Visit Provider Family Medicine | DX: I10 Essential (primary) hypertension (principal) | CPT/HCPCS: 80053 ==